=== PATIENT | female | born 1955 | race Caucasian/White ===

== ENCOUNTER → 2017-04-21 | Outpatient (CLI) | payer BC ==
--- NOTE | 2017-04-21 13:42 | MAMMOGRAPHY REPORT ---
BILATERAL DIGITAL SCREENING MAMMOGRAM TOMOSYNTHESIS WITH CAD: 04/21/2017 CLINICAL HISTORY: Routine screening. Patient has no complaints. TECHNIQUE: Breast tomosynthesis in addition to standard 2D mammography was performed. Current study was also evaluated with a Computer Aided Detection (CAD) system. COMPARISON: Comparison is made to exams dated: 03/29/2016 mammogram, 03/27/2015 mammogram, 04/04/2014 u ltrasound, 04/04/2014 mammogram, 03/26/2014 mammogram, and 03/19/2013 mammogram - [facility]. BREAST COMPOSITION: There are scattered areas of fibroglandular density in both breasts. FINDINGS: No suspicious masses, calcifications, or areas of architectural distortion are noted in ei ther breast. There has been no significant interval change compared to prior exams. IMPRESSION: ACR BI-RADS CATEGORY 1: NEGATIVE There is no mammographic evidence of malignancy. A 1 year screening mammogram is recommended. The pa tient will receive written notification of the results. Approximately 10% of breast cancers are not detected with mammography. A negative mammographic report should not delay biopsy if a clinically suggestive mass is present. Chari Crane M.D. /:04/21/2017 12:47:08 Chief Controller: Renee Holcomb [facility] letter sent: Normal 1/2 BI-RADS Code: ACR BI-RADS Category 1: Negative
== END | disposition home or self-care (01) ==
LOC: C.MAMM 10:41
PROVIDERS: ATTEND Obstetrics & Gynecology
DX: Z12.31 Encounter for screening mammogram for malignant neoplasm of breast (principal)

== ENCOUNTER → 2017-05-29 | Day surgery (SDC) | payer BC ==
[~2017-05-29] VITALS: Ht 162.6 cm; Wt 72.0 kg
[~2017-05-29] MED LIST: APIX1TAB3 PO; ATOR-24 PO; CALC500C70 PO; COEN1CAP28 PO; LIDOCAINE HCL 2% 2 ML VIAL (20MG/ML) ONE; METO50TA7 PO; PROPOFOL IV EMULSION 10 MG/ML 20 ML VIAL IV ONE; TMB100 PO
[2017-05-29 07:12] VITALS: BP 130/91; PULSE 93; TEMP 36.9; O2SAT 97; Ht 162.6 cm; Wt 72.0 kg
[2017-05-29 07:41] VITALS: BP 138/89; PULSE 100; O2SAT 100
--- NOTE | 2017-05-29 07:41 | History & Physical Bridge Note ---
H&P Re-Evaluation Bridge Note: I have examined the patient, reviewed the History & Physical and in the interval since the performance of the History & Physical I have noted the following changes of clinical significance: No changes noted. I reviewed the indications, procedure, risks and alternatives with patient and she understand and agrees to proceed. Consent obtained.
[2017-05-29 07:46] VITALS: BP 105/66; PULSE 100; O2SAT 100
--- NOTE | 2017-05-29 07:49 | [facility] Operative Report ---
Operative Report Operative Date May 29, 2017. Pre-Operative Diagnosis Atrial flutter Post-Operative Diagnosis same Procedure(s) Performed Electrical cardioversion Surgeon Dr. Bust[employer] Computer Consultant Surgeon(s) none Estimated Blood Loss none Findings Successful cardioversion with 50 J Specimens None Anesthesia via anesthesia department Complication(s) None Disposition [employer] recovering Description of Procedure The patient was brought to the laboratory being NPO after midnight and was identified in the laboratory, connected to the recording apparatus including electrocardiographic monitoring, noninvasive blood pressure monitoring and pulse oximetry. Anteroposterior patch electrodes were placed. The patient was anesthetized by the anesthesia department. Once adequate anesthesia was obtained a synchronized biphasic shock was delivered using 50 J with conversion to a sinus rhythm. The patient awoke from the anesthetic without sequela, will be observed briefly and then discharged. I attest to the content of the Intraoperative Record and any orders documented therein. Any exceptions are noted below.
[2017-05-29 07:51] VITALS: BP 105/66; PULSE 100; O2SAT 100
[2017-05-29 07:55] VITALS: BP 105/66; PULSE 100; O2SAT 98
--- NOTE | 2017-05-29 07:59 | Anesthesiology Progress Note ---
Anesthesia Post Op Note Date & Time May 29, 2017 at 07:59 Vital Signs Pain Intensity: 0 Vital Signs Past 12 Hours Date Time Temp Pulse Resp B/P (MAP) Pulse Ox O2 Delivery O2 Flow Rate FiO2 05/29/17 07:55 100 16 105/66 98 Room Air 05/29/17 07:51 100 16 105/66 100 Nasal Cannula 4 05/29/17 07:46 100 16 105/66 100 Nasal Cannula 4 05/29/17 07:41 100 16 138/89 100 Nasal Cannula 4 05/29/17 07:12 36.9 93 16 130/91 97 Room Air Notes Mental Status: alert / awake / arousable, participated in evaluation Pt Amnestic to Procedure: Yes Nausea / Vomiting: adequately controlled Pain: adequately controlled Airway Patency, RR, SpO2: stable & adequate BP & HR: stable & adequate Hydration State: stable & adequate Anesthetic Complications: no major complications apparent
--- NOTE | 2017-05-29 08:40 | Discharge Instructions ---
Discharge Instructions Date of Service May 29, 2017. Admission Reason for Admission: Atrial flutter Discharge Discharge Diagnosis / Problem: electrical cardioversion Discharge Goals Goal(s): Improve disease control Activity Recommendations Activity Limitations: resume your previous activity . Instructions / Follow-Up Instructions / Follow-Up ACTIVITY RECOMMENDATIONS: * May resume driving tomorrow. SPECIAL CARE: * May apply burn ointment for skin irritation. * Please contact physician for any lightheadedness, dizziness or palpitations. Current Hospital Diet Patient's current hospital diet: AHA Diet (Heart Healthy) Discharge Diet Recommended Diet: AHA Diet (Heart Healthy) Procedures Procedures Performed: Electrical cardioversion Pending Studies Studies pending at discharge: no Medical Emergencies . Who to Call and When: Medical Emergencies: If at any time you feel your situation is an emergency, please call 911 immediately. . Non-Emergent Contact Non-Emergency issues call your: Primary Care Provider . . "Provider Documentation" section prepared by Joaquin Bustamante. . VTE Core Measure Inpt VTE Proph given/why not?: Other Anticoagulation
[2017-05-29 09:00] VITALS: BP 105/64; PULSE 59; O2SAT 96
== END | disposition home or self-care (01) ==
LOC: C.CATH 06:31
PROVIDERS: ATTEND Internal Medicine Cardiovascular Disease
DX: I48.0 Paroxysmal atrial fibrillation (principal); I48.92 Unspecified atrial flutter; E78.5 Hyperlipidemia, unspecified; Z79.01 Long term (current) use of anticoagulants; Z85.828 Personal history of other malignant neoplasm of skin; Z90.710 Acquired absence of both cervix and uterus; Z90.722 Acquired absence of ovaries, bilateral; Z82.49 Family history of ischemic heart disease and other diseases of the circulatory system

== ENCOUNTER → 2018-03-13 | Outpatient (CLI) | payer BC ==
[~2018-03-13] MED LIST changes: -LIDOCAINE HCL 2% 2 ML VIAL (20MG/ML) ONE; -METO50TA7 PO; +METO50TA8 PO; -PROPOFOL IV EMULSION 10 MG/ML 20 ML VIAL IV ONE
--- NOTE | 2018-04-05 12:34 | CODING QUERY NO DIAGNOSIS ---
TREATMENT RENDERED WITHOUT A DIAGNOSIS : 53 To promote full compliance with coding requirements relating to patient care, physician participation is requested in all cases of desk editor uncertainty. Please assist us with providing a diagnosis/symptom for the test(s) below: A diagnosis/symptom was not documented on your Order. A valid diagnosis/symptom is required to bill all insurances. Please remember that we are unable to code a diagnosis of rule out, probable, possible, questionable, or suspected. Tests that require a diagnosis: DOS: 03/13/18 * ALT/SGPT DIAGNOSIS: * AMYLASE DIAGNOSIS: * AST/SGOT DIAGNOSIS: * BILIRUBIN DIAGNOSIS: Provider Signature: Date: Thank you Shanon Brady Health Information Management Once completed, please kindly fax back to [phone] For questions please call [phone]
== END | disposition home or self-care (01) ==
LOC: C.LAB 12:00
PROVIDERS: ATTEND Family Medicine
DX: Z01.89 Encounter for other specified special examinations (principal)

== ENCOUNTER 2023-12-12 09:30 | Observation (INO) ==
--- NOTE | 2023-11-09 10:49 | PAT Medication Instructions ---
Medication Instructions Date of Service November 09, 2023 Home Medications Medication Instructions Recorded atorvastatin 40 mg tablet 40 mg PO HS #90 tabs 12/22/22 apixaban 5 mg tablet (Eliquis) 5 mg PO BID #180 tabs 07/06/23 peg 3350-sod sulf,[id number] See Rx Instructions PO .COMPLEX #2 11/08/23 178.7-7.3-0.5-1.12-0.9 gram oral mL soln (Suflave) coenzyme Q10 100 mg capsule 100 mg PO QAM calcium carbonate 600 mg-vitamin D3 5 mcg (200 unit) capsule (Calcium 600 + D(3)) 1 cap PO QAM omega-3 650 mg-dha 400 mg-epa 200 mg-fish oil-vit D3 300 unit capsule 1 cap PO DAILY atorvastatin 40 mg tablet 40 mg PO HS apixaban 5 mg tablet (Eliquis) 5 mg PO BID peg 3350-sod sulf,[id number] 178.7-7.3-0.5-1.12-0.9 gram oral soln (Suflave) See Rx Instructions Continue as directed peg 3350-sod sulf,[id number] 178.7-7.3-0.5-1.12-0.9 gram oral soln (Suflave) See Rx Instructions ASK your prescriber and surgeon apixaban 5 mg tablet (Eliquis) 5 mg PO BID (in order to get spinal anesthesia- will need to hold Eliquis/apixaban at least 72 hours prior to surgery) STOP taking 2 weeks before surgery coenzyme Q10 100 mg capsule 100 mg PO QAM omega-3 650 mg-dha 400 mg-epa 200 mg-fish oil-vit D3 300 unit capsule 1 cap PO DAILY DO NOT take the morning of surgery calcium carbonate 600 mg-vitamin D3 5 mcg (200 unit) capsule (Calcium 600 + D(3)) 1 cap PO QAM Take evening before surgery atorvastatin 40 mg tablet 40 mg PO HS OTHERWISE NOTHING TO EAT OR DRINK AFTER MIDNIGHT Other Notes If you have any questions please call us at [phone] or [phone] or [phone] or [phone]
--- NOTE | 2023-11-14 09:56 | Anesthesiology Consultation ---
Date of Service November 14, 2023 Assessment & Plan (1) Encounter for pre-operative examination: - Infectious disease screening: Per assessment on 11/14/23: No known infectious disease contacts or current infectious disease symptoms. No noted recent Covid positive test result. - Outpatient joint assessment: Pt currently scheduled for inpatient pathway. If surgeon requests review for outpatient joint pathway, patient is not recommended candidate for outpatient joint program from anesthesia standpoint based upon available information. - EP/Cardiology visit (04/13/23): "She has felt very well since that second ablation. She has had no known recurrence or recurrent atrial fibrillation or fluter. She remains active but.. limited by her knee and is looking forward to some knee surgery.. Plan today is to stop the Multaq.. I recommend that she continue taking blood thinner for stroke risk reduction" - Borderline hyperkalemia: Potassium 5.2 on preop labs 11/14/23. Will recheck potassium level DOS. Chart Review Chart Review: Acceptable Risk for Surgery and Patient seen in Pre Admission Testing Teaching & Discussion Pre-Anesthesia Teaching/Discussion Notes: Instructed NPO after midnight before surgery,except medications with 15 cc of water. Medication instructions provided according to the PAT guidelines. History Surgery Operation Date: 12/12/23 07:00 Proposed Procedures p Left Total Knee Arthroplasty - Edison Aguilar MD Height/Weight Height: 5 ft 4 in Weight: 69.4 kg Allergies Allergy/AdvReac Type Severity Reaction Status Date / Time prednisone AdvReac Severe Psychosis Verified 11/10/23 12:55 Medications Home Medications Medication Instructions Recorded Confirmed Last Taken coenzyme Q10 100 mg capsule 100 mg PO QAM 07/09/19 11/06/23 1 Day Ago ~12/09/22 calcium carbonate 600 mg-vitamin 1 cap PO QAM 08/22/19 11/06/23 1 Day Ago D3 5 mcg (200 unit) capsule ~12/09/22 (Calcium 600 + D(3)) omega-3 650 mg-dha 400 mg-epa 200 1 cap PO DAILY 03/31/22 11/06/23 1 Day Ago mg-fish oil-vit D3 300 unit capsule ~12/09/22 atorvastatin 40 mg tablet 40 mg PO HS #90 tabs 12/22/22 11/06/23 Unknown apixaban 5 mg tablet (Eliquis) 5 mg PO BID #180 tabs 07/06/23 11/06/23 Unknown peg 3350-sod sulf,[id number] See Rx Instructions PO .COMPLEX #2 11/08/23 Unknown 178.7-7.3-0.5-1.12-0.9 gram oral mL soln (Suflave) Past Medical History Medical History Bipolar disorder History of basal cell carcinoma History of colon polyps History of COVID-19 09/2022- resolved History of dysplastic nevus History of squamous cell carcinoma Hyperlipidemia Paroxysmal atrial fibrillation Taking Eliquis Follows with Dr Do/[facility] Exercise / Class Metabolic Activity II 4-5 Yardwork/Stairs/Walk up hill (one FS: No CP, no SOB) Past Family History Family History Mother Atrial fibrillation Melanoma of forearm Colonic polyp Father Atrial fibrillation Melanoma of eye Colonic polyp Other No family history of adverse response to anesthesia Denies family history of Ovarian cancer Prostate cancer Myocardial infarction Breast cancer Lung cancer Colorectal cancer Stroke Past Surgical History Surgical History H/O hysterectomy with oophorectomy History of colonoscopy with polypectomy [place] cardiac [place]ia [place] [place] of tonsillectomy and adenoidectomy History of wisdom tooth extraction Hx of local excision of skin lesion Hx of transesophageal echocardiography [place]ENDA) for [place] [place] Nausea and vomiting after administration of anesthetic agent S/P tubal ligation Past Anesthesia History No Hx of Anesthesia Complications and No Family Hx of Anesthesia Complications History of PONV No Hx of Motion Sickness and History of PONV (Remote hx) Social History Smoking Status: Never smoker Do You Dip or Chew Tobacco: No Hx Alcohol Use: Yes Alcohol type: beer, wine and hard liquor alcohol intake frequency: a few times a week Hx Substance Use: No substance use type: does not use Review of Systems Patient denies chest pain, shortness of breath, dyspnea on exertion, fever, chills, cough, wheezing, palpitations. Physical Exam Vital Signs BP 131/86 P 82 TEMP 98.4 SP02 99%RA RESP 16 Physical Full cervical extension range of motion. Full TMJ range of motion. TMD 3 finger breaths Mallampati Score 2 Dentition: intact, + several implants, + several crowns (including right upper incisor) Lungs: clear throughout to auscultation Cardiac: regular rate and rhythm, no murmurs noted Spine: normal Carotid arteries: negative bruit Extremities: no LE edema Lab Results Anesthesia Preop Results Results Anesthesia Widget: WBC 5.03 K/ul (4.8-10.8) 11/14/23 Hgb 13.4 g/dl (12.0-16.0) 11/14/23 Hct 39.5 % (37.0-47.0) 11/14/23 Plt 221 K/uL (130-400) 11/14/23 Na 140 mmol/L (136-145) 11/14/23 K 5.2 mmol/L (3.5-5.1) H 11/14/23 Cl 106 mmol/L (98-107) 11/14/23 CO2 28 mmol/L (21-32) 11/14/23 BUN 21 mg/dl (6-23) 11/14/23 Creat 0.84 mg/dl (0.6-1.2) 11/14/23 Glucose Level 99 mg/dl (70-99(Fasting)) 11/14/23 PT 11.1 Seconds (9.0-12.0) 11/14/23 PTT 27 Seconds (21-31) 11/14/23 INR 1.0 (0.9-1.1) 11/14/23 Blood Type A Negative 11/14/23 Antibody Screen NEGATIVE 11/14/23 Testing Electrocardiogram Date: 01/05/23 NSR at 85bpm. "Normal ECG" Chest X-Ray Date: 11/14/23 FINDINGS: No lines and tubes are seen. Calcified aortic knob is seen. The lungs are clear. No evidence of pleural effusion or pneumothorax. IMPRESSION: No acute chest disease. Echocardiogram BRENDA (during ablation) Date: 01/05/23 EF 55%. DOE free of thrombus formation. No significant valvular disease. No RWMA.
--- NOTE | 2023-12-07 08:17 | History & Physical Report ---
Date of Service December 07, 2023 Assessment & Plan (1) Arthritis of knee, left: 68-year-old female with a history of underlying paroxysmal atrial fibrillation status post ablation with advanced left knee arthritis. She is failed conservative measures. She like to have her knee replaced. Plan: Plan taken to the operating do a left total knee replacement for the risks Mente this procedure planed the patient include but not limited to DVT PE infection neurological and vascular bleeding palm pain limb range of motion sepsis fairly with symptoms incomplete relief of symptoms persistent pain etc. Patient understands and desires to proceed. Informed consent was obtained. She will need to hold her Eliquis 3 days preop. Will start her on a postoperative prophylactic dose 24 hours postop. Plan to be discharged home using [facility] home [facility]. Her potassium slightly elevated on her preop labs and will Trevena checked at the morning of surgery. (2) Paroxysmal atrial fibrillation: (3) Hyperlipidemia: (4) Chronic anticoagulation: (5) Bipolar disorder: History of Present Illness Chief Complaint: . Persistent and progressive left knee pain and discomfort. Primary Care Provider: Mathew Santos MD . Patient is a 68-year-old female who presents for surgical treatment of her left knee. She got a long history of gradually increasing left knee pain discomfort is gradually gotten worse over time. She been through extensive conservative treatment including injections which have become less successful over time. Describes global pain. The more she is up and on it the more it hurts. She is having difficulty maintaining an active lifestyle due to the pain. Is global pain. She limps more as the day goes on patient is ready to have her knee fixed. Patient does have history of paroxysmal atrial fibrillation. She has had ablation x 2 without signs of recurrence but still on Eliquis. Allergies Allergy/AdvReac Type Severity Reaction Status Date / Time prednisone AdvReac Severe Psychosis Verified 11/20/23 09:30 Home Medications Medication Instructions Recorded Confirmed Type coenzyme Q10 100 mg capsule 100 mg PO QAM 07/09/19 11/20/23 History calcium carbonate 600 mg-vitamin 1 cap PO QAM 08/22/19 11/20/23 History D3 5 mcg (200 unit) capsule (Calcium 600 + D(3)) omega-3 650 mg-dha 400 mg-epa 200 1 cap PO DAILY 03/31/22 11/20/23 History mg-fish oil-vit D3 300 unit capsule atorvastatin 40 mg tablet 40 mg PO HS #90 tabs 12/22/22 11/20/23 Rx apixaban 5 mg tablet (Eliquis) 5 mg PO BID #180 tabs 07/06/23 11/20/23 Rx Wheeled Walker #1 ea 12/04/23 Rx Past Med/Surg History Medical History History of colon polyps Bipolar disorder History of COVID-19 09/2022- resolved History of dysplastic nevus History of squamous cell carcinoma History of basal cell carcinoma Hyperlipidemia Paroxysmal atrial fibrillation Taking Eliquis Follows with Dr Do/[facility] Surgical History Hx of transesophageal echocardiography (BRENDA) for monitoring 01/2023 ([facility] [place] Nausea and vomiting after administration of anesthetic agent Hx of local excision of skin lesion History of radiofrequency ablation procedure for cardiac arrhythmia x2, most recent 01/2023 ([facility] [place] History of colonoscopy with polypectomy History of wisdom tooth extraction History of tonsillectomy and adenoidectomy H/O hysterectomy with oophorectomy S/P tubal ligation Family History Mother Atrial fibrillation Melanoma of forearm Colonic polyp Father Atrial fibrillation Melanoma of eye Colonic polyp Other No family history of adverse response to anesthesia Denies family history of Ovarian cancer Prostate cancer Myocardial infarction Breast cancer Lung cancer Colorectal cancer Stroke Social History Smoking Status: Never smoker Second Hand Exposure: No; Do You Dip or Chew Tobacco: No; Hx Alcohol Use: Yes Alcohol type: beer, wine and hard liquor Alcohol Intake Frequency Comment: rarely Hx Substance Use: No Preferred Language: Angolan Communication Ability: Effective Visual Impairment: Limited Hearing Ability: Normal Filter Washer And Presser Required: No Beliefs That Will Affect Care: None marital status: Current Living Situation: Spouse current occupational status: retired How many Children do You have: 2 Feels Safe at Home: Yes Childhood Exposure to Second-Hand Smoke: Yes Diet: regular caffeine: Yes during the past year weight has: remained stable Dental Care, Regularly: Yes Physical Activity Frequency: 3-4 Times per Week Seatbelt Use: always Sunscreen Use: Yes Gender Identity: Female Assistive Devices: Glasses Review of Systems All systems reviewed & are unremarkable except as noted in HPI & below. Physical Exam . Physical examination was a pleasant 68-year-old female. Looks younger than her stated age. Examination of the left knee reveal patient ambulates independently. She got slight varus alignment to her knee. Tender over the medial joint line. Does have a little bit of a varus thrust with weightbearing. Small knee effusion. Range of motion 5-1 20. No instability. No pain with hip motion. Constitutional WD/WN, vitals as above Neck trachea midline, no thyromegaly Respiratory normal respiratory effort, lungs clear to auscultation Cardiovascular RRR, no murmur, no edema Gastrointestinal (Abdomen) normal bowel sounds, soft, nontender, no hepatosplenomegaly Results & Data Results & Data Laboratory Results . Diagnostic Findings . X-rays left knee reviewed. She has advanced left knee DJD. She got complete loss of medial joint space. She has osteophytes in all 3 compartments. Pretty significant posterior osteophytes. Some small loose bodies. PG Care Time/CCT Total # of Minutes Spent Total Time Spent with Patient: Total time spent is greater than 50% in coordination of care (as documented) at patient's floor/unit and/or counseling patient: Coding Level of Care Code None Diagnoses Arthritis of knee, left M17.12 Paroxysmal atrial fibrillation I48.0 Pure hypercholesterolemia E78.00 Hyperlipidemia type: pure hypercholesterolemia Chronic anticoagulation Z79.01 Bipolar disorder, in full remission, most recent episode manic F31.74 Active/Remission status: in full remission Most recent bipolar episode type: manic (3) Hyperlipidemia Hyperlipidemia type: pure hypercholesterolemia Qualified Code(s): E78.00 - Pure hypercholesterolemia, unspecified (5) Bipolar disorder Active/Remission status: in full remission Most recent bipolar episode type: manic Qualified Code(s): F31.74 - Bipolar disorder, in full remission, most recent episode manic
--- NOTE | 2023-12-08 08:15 | Anesthesiology Consultation ---
Date of Service December 08, 2023 Assessment & Plan (1) Encounter for pre-operative examination: - Infectious disease screening: Per assessment on 11/14/23: No known infectious disease contacts or current infectious disease symptoms. No noted recent Covid positive test result. - Outpatient joint assessment: Pt currently scheduled for inpatient pathway. If surgeon requests review for outpatient joint pathway, patient is not recommended candidate for outpatient joint program from anesthesia standpoint based upon available information. - EP/Cardiology visit (04/13/23): "She has felt very well since that second ablation. She has had no known recurrence or recurrent atrial fibrillation or fluter. She remains active but.. limited by her knee and is looking forward to some knee surgery.. Plan today is to stop the Multaq.. I recommend that she continue taking blood thinner for stroke risk reduction" - Borderline hyperkalemia: Potassium 5.2 on preop labs 11/14/23. Will recheck potassium level DOS. Chart Review Chart Review: Acceptable Risk for Surgery and Patient seen in Pre Admission Testing (11/14/23) Teaching & Discussion Pre-Anesthesia Teaching/Discussion Notes: Instructed NPO after midnight before surgery,except medications with 15 cc of water. Medication instructions provided according to the PAT guidelines. History Surgery Operation Date: 12/12/23 11:00 Proposed Procedures p Left Total Knee Arthroplasty - Edison Aguilar MD Height/Weight Height: 5 ft 4 in Weight: 69.4 kg Allergies Allergy/AdvReac Type Severity Reaction Status Date / Time prednisone AdvReac Severe Psychosis Verified 12/12/23 09:54 Medications Home Medications Medication Instructions Recorded Confirmed Last Taken coenzyme Q10 100 mg capsule 100 mg PO QAM 07/09/19 12/12/23 11/28/23 calcium carbonate 600 mg-vitamin 1 cap PO QAM 08/22/19 12/12/23 11/28/23 D3 5 mcg (200 unit) capsule (Calcium 600 + D(3)) omega-3 650 mg-dha 400 mg-epa 200 1 cap PO DAILY 03/31/22 12/12/23 11/28/23 mg-fish oil-vit D3 300 unit capsule atorvastatin 40 mg tablet 40 mg PO HS #90 tabs 12/22/22 12/12/23 12/11/23 09:30 apixaban 5 mg tablet (Eliquis) 5 mg PO BID #180 tabs 07/06/23 12/12/23 12/08/23 22:00 Wheeled Walker #1 ea 12/04/23 Unknown acetaminophen 500 mg tablet 1,000 mg (2 x 500 mg) PO TID pain 12/09/23 12/12/23 Unknown (Tylenol Extra Strength) 30 days #180 tabs cefadroxil 500 mg capsule 500 mg PO BID 7 days #14 caps 12/09/23 12/12/23 Unknown ondansetron 4 mg disintegrating 4 mg PO Q8 PRN nausea #20 tabs 12/09/23 12/12/23 Unknown tablet oxycodone 5 mg tablet 5 - 10 mg (1 - 2 x 5 mg) PO Q6 PRN 12/09/23 12/12/23 Unknown pain #40 tabs sennosides 8.6 mg tablet (Senokot) 8.6 mg PO BID prevent constipation 12/09/23 12/12/23 Unknown 14 days #28 tabs Active Medications Generic Name Dose Route Start Last Admin Trade Name Freq PRN Reason Stop Dose Admin Acetaminophen 1,000 mg 12/12/23 06:00 12/12/23 10:10 Acetaminophen 500 Mg Tab PO 12/12/23 18:00 1,000 mg PREOP JOSUÉ Administration Celecoxib 200 mg 12/12/23 06:00 12/12/23 10:11 Celebrex 200 Mg Cap PO 12/12/23 18:00 200 mg PREOP JOSUÉ Administration Dexamethasone Sodium Phosphate 10 mg 12/12/23 06:00 12/12/23 10:11 DexamethasonePf 10 Mg/Ml Vial IV 12/12/23 18:00 10 mg PREOP JOSUÉ Administration Famotidine 20 mg 12/12/23 06:00 12/12/23 10:11 Famotidine 20 Mg Tab PO 12/12/23 18:00 20 mg PREOP JOSUÉ Administration Lactated Ringer's 1,000 mls @ 15 mls/hr 12/12/23 06:00 12/12/23 10:12 Lr IV 12/12/23 18:00 15 mls/hr .Q24H JOSUÉ Administration Lactated Ringer's 1,000 mls @ 60 mls/hr 12/12/23 06:00 12/12/23 10:12 Lr IV 12/12/23 22:39 Not Given .[id number] JOSUÉ Metoclopramide HCl 10 mg 12/12/23 06:00 12/12/23 10:12 Metoclopramide Hcl 10 Mg Tablet PO 12/12/23 18:00 10 mg PREOP JOSUÉ Administration Past Medical History Medical History Bipolar disorder History of basal cell carcinoma History of colon polyps History of COVID-19 09/2022- resolved History of dysplastic nevus History of squamous cell carcinoma Hyperlipidemia Paroxysmal atrial fibrillation Taking Eliquis Follows with Dr Do/[facility] Exercise / Class Metabolic Activity II 4-5 Yardwork/Stairs/Walk up hill (one FS: No CP, no SOB) Past Family History Family History Mother Atrial fibrillation Melanoma of forearm Colonic polyp Father Atrial fibrillation Melanoma of eye Colonic polyp Other No family history of adverse response to anesthesia Denies family history of Ovarian cancer Prostate cancer Myocardial infarction Breast cancer Lung cancer Colorectal cancer Stroke Past Surgical History Surgical History H/O hysterectomy with oophorectomy History of colonoscopy with polypectomy History of radiofrequency ablation procedure for cardiac arrhythmia x2, most recent 01/2023 ([facility] [place]) History of tonsillectomy and adenoidectomy History of wisdom tooth extraction Hx of local excision of skin lesion Hx of transesophageal echocardiography (BRENDA) for monitoring 01/2023 ([facility] [place]) Nausea and vomiting after administration of anesthetic agent S/P tubal ligation Past Anesthesia History No Hx of Anesthesia Complications and No Family Hx of Anesthesia Complications History of PONV No Hx of PONV and No Hx of Motion Sickness Social History Smoking Status: Never smoker Do You Dip or Chew Tobacco: No Hx Alcohol Use: Yes Alcohol type: beer, wine and hard liquor alcohol intake frequency: a few times a week Hx Substance Use: No substance use type: does not use Review of Systems Patient denies chest pain, shortness of breath, dyspnea on exertion, fever, chills, cough, wheezing, palpitations. Physical Exam Vital Signs Last Vital Signs Temp 36.8 C 12/12/23 09:58 Pulse 89 12/12/23 09:58 Resp 20 12/12/23 09:58 BP 139/85 12/12/23 09:58 Pulse Ox 99 12/12/23 09:58 O2 Del Method Room Air 12/12/23 09:58 BP 131/86 P 82 TEMP 98.4 SP02 99%RA RESP 16 Physical Full cervical extension range of motion. Full TMJ range of motion. TMD 3 finger breaths Mallampati Score 2 Dentition: intact, + several implants, + several crowns (including right upper incisor) Lungs: clear throughout to auscultation Cardiac: regular rate and rhythm, no murmurs noted Spine: normal Carotid arteries: negative bruit Extremities: no LE edema Lab Results Anesthesia Preop Results Results Anesthesia Widget: 2 WBC 5.03 K/ul (4.8-10.8) 11/14/23 Hgb 13.4 g/dl (12.0-16.0) 11/14/23 Hct 39.5 % (37.0-47.0) 11/14/23 Plt 221 K/uL (130-400) 11/14/23 Na 140 mmol/L (136-145) 11/14/23 K 4.2 mmol/L (3.5-5.1) 12/12/23 Cl 106 mmol/L (98-107) 11/14/23 CO2 28 mmol/L (21-32) 11/14/23 BUN 21 mg/dl (6-23) 11/14/23 Creat 0.84 mg/dl (0.6-1.2) 11/14/23 Glucose Level 99 mg/dl (70-99(Fasting)) 11/14/23 PT 11.1 Seconds (9.0-12.0) 11/14/23 PTT 27 Seconds (21-31) 11/14/23 INR 1.0 (0.9-1.1) 11/14/23 Blood Type A Negative 11/14/23 Antibody Screen NEGATIVE 11/14/23 Testing Laboratory Results 12/12/23 09:40 Electrocardiogram Date: 01/05/23 NSR at 85bpm. "Normal ECG" Chest X-Ray Date: 11/14/23 FINDINGS: No lines and tubes are seen. Calcified aortic knob is seen. The lungs are clear. No evidence of pleural effusion or pneumothorax. IMPRESSION: No acute chest disease. Echocardiogram Date: 01/05/23 EF: 55% Valvular Disease: + no significant valvular disease BRENDA (during ablation) Date: 01/05/23 EF 55%. DOE free of thrombus formation. No significant valvular disease. No RWMA.
[~2023-12-12 09:30] MED LIST changes: -APIX1TAB3 PO; -ATOR-24 PO; +BUPIVACAINE 0.5 % 5 MG/1 ML PF 10ML VIAL ONE; -CALC500C70 PO; -COEN1CAP28 PO; +General Order Problem(s) SCH; -METO50TA8 PO; +Nursing to Pharmacy Communication SCH; +ROPIVACAINE 0.5% 5 MG/ML 30 ML VIAL ONE; -TMB100 PO
[2023-12-12] MEDS: ACETAMINOPHEN 500 MG TAB PO SCH ×2 (10:10→16:33)
[2023-12-12] MEDS: FAMOTIDINE 20 MG TAB PO SCH (10:11)
[2023-12-12] MEDS: CeleBREX 200 MG CAP PO SCH (10:11)
[2023-12-12] MEDS: dexAMETHasone**PF** 10 MG/ML VIAL IV SCH (10:11)
[2023-12-12] MEDS ORDERED: MIDAZOLAM HCL 1 MG/ML 2ML VIAL ONE (10:12)
[2023-12-12] MEDS ORDERED: PROPOFOL IV EMULSION 10 MG/ML 20 ML VIAL IV ONE (10:12)
[2023-12-12] MEDS ORDERED: LIDOCAINE 2% 2 ML VIAL/AMP(20MG/ML) INFIL ONE (10:12)
[2023-12-12] MEDS: LR 60ML/HR IV SCH (10:12)
[2023-12-12] MEDS: METOCLOPRAMIDE HCL 10 MG TABLET PO SCH (10:12)
[2023-12-12] MEDS: LR 500ML BOLUS, THEN 15ML/HR IV SCH (10:12)
[2023-12-12] MEDS ORDERED: fentaNYL citrate PF 100 MCG/2 ML VIAL IV PRN (10:31)
[2023-12-12] MEDS ORDERED: DROPERIDOL 5 MG/2 ML VIAL IV PRN (10:31)
[2023-12-12] MEDS ORDERED: ATROPINE SULFATE 0.1 MG/ML 10ML SYR IV PRN (10:31)
[2023-12-12] MEDS ORDERED: ePHEDrine sulfate 50 MG/ML AMP IV PRN (10:31)
--- NOTE | 2023-12-12 11:18 | History & Physical Bridge Note ---
Date of Service December 12, 2023 History & Physical Bridge Note I have examined the patient, reviewed the History & Physical and in the interval since the performance of the History & Physical I have noted the following changes of clinical significance: no changes noted
[2023-12-12] MEDS: ceFAZolin 2000MG 2,000 MG/15 ML SYR IV SCH (11:39)
[2023-12-12] MEDS: ROPIV 0.5% 246mg, Ketorolac 30mg, EPINEPHrine 0.5mg in NSS INFIL SCH (12:19)
[2023-12-12] MEDS: ORTHO JOINT ANESTHETIC ONE (12:20)
[2023-12-12] MEDS: TRANEXAMIC ACID 1,000 MG **IV Intra-op IV SCH (12:35)
--- NOTE | 2023-12-12 13:30 | Operative Report ---
PG Post Operative Report Pre & Post Diagnosis Operation Date: 12/12/23 11:00 Pre-Op Diagnosis: Left Knee degenerative joint disease Post-Op Diagnosis: Left Knee degenerative joint disease I identified the patient and participated in the time-out.: Yes Procedure Operation Date: 12/12/23 11:00 Actual Procedures p Left Total Knee Arthroplasty(Left) - Edison Aguilar MD Surgeon Edison Aguilar MD Digital Marketer Nain Younger PA-C Estimated Blood Loss 50 Findings Consistent with Post-Op Diagnosis Operative findings reveal advanced left knee DJD. She had extensive grade 4 [id number] disease with significant eburnation of the medial compartment. She had less severe but spotty grade 4 changes laterally yet. Fixed varus deformity to her knee with a flexion contracture of 15 to 20 degrees. Osteophytes in all 3 compartments. Specimens Left knee sent for pathology. Anesthesia Type Spinal MAC Complications none Disposition Accompanied Patient To Recovery: No Indications Patient is a 68-year-old fairly active female is had a long history of bilateral knee pain discomfort left side a bit worse than the right. She been through extensive conservative treatment over the years which would become less success ful. X-rays show advanced left knee DJD. She has a significant stiff knee as well. She was indicated for surgical treatment/knee replacement. Description of Procedure Operative implants consist of: 1 Biomet Vanguard size 67.5 left posterior stabilized femoral component. 2. Biomet size 71 tibial tray. 3. 10 mm posterior stabilized polyethylene insert. 4. 31 x 8 all poly patella. The patient was taken the operating, identified, placed on the operating table in the supine position. All contact areas were appropriately padded. IV antibiotics tried by anesthesia team. Spinal anesthetic and adductor canal block had been applied in the holding area. Contreras catheter was placed in sterile fashion for the left thigh turn was then placed in the left lower extremities then prepped and draped in usual sterile fashion. The left leg was elevated and exsanguinated with use of an Esmarch and the tourniquet was placed at 300 mmHg. An anterior approach left knee was then performed to longitudinal incision centered over the patella. Sharp dissection was carried through subcutaneous tissue down the extensor mechanism. A medial parapatellar arthrotomy incision was made. Some subperiosteal dissection was carried out medially. The fat pad was resected from Neath patella tendon. Lateral patellofemoral ligament was released. Patella subluxated laterally knee was flexed. The osteophyte taken off the distal femur. The ACL and PCL were then released from the distal femur and the tibia subluxated anteriorly. The external tibial alignment jig was then placed in the interface the tibia and adjusted 14 mm medially. Proximal tibial cut was made essentially flush with the most deficient aspect of the medial tibial plateau. Some osteophytes taken off medially. Tibia sized to a size 71. Attention drawn the femur. The distal femur was entered with a sharp drill. Intramedullary canal was suction. A left 5 degree valgus cutting guide was placed. Distal femoral cutting block was pinned in place. Distal femoral cut was made take an additional 3 mm of bone off distal femur. The femur was then sized to a size 67.5. The AP cutting block was pinned parallel to the epicondylar axis which was 5 degrees of external rotation. The anterior cut, anterior chamfer, posterior cut, posterior chamfer cuts were made. The box cutting guide was placed in just slight lateral and the box cut was made. The knee was flexed. The remnants of the medial and lateral menisci were excised. The osteophytes taken off the posterior aspect the femur. A trial femoral component was placed. The tibial tray was pinned Gill external rotation. The drill and stem punch were used to create defect in proximal tibia for the tibial tray. The knee was then trialed and the 10 mm insert fit most appropriately. Attention drawn the patella. The patella was cleaned of all soft tissues. Patella thickness measured 4.23 mm and cut down to 13. Was sized to a size 31 patella. The lug holes were drilled for 31 patella. The lateral osteophyte was removed. Patella button was placed. Knee was taken through range of motion and the patella tracked nicely with no thumbs test. Attention drawn to Torp placed in the permanent components. Nupathe all trial components were removed. Bone plug was placed into this femur limit blood loss. Double batch Palacos G cement was mixed. A Biomet Vanguard size 67.5 left Po stabilized femoral component, a size 71 tibial tray, a 10 mm post stabilized polyethylene insert, and a 31 x 8 all poly patella then cemented in place. The knee was brought out into full extension till cement hardened. Final cement check was then performed. The pericapsular tissues were injected with total of 100 cc of orthopedic joint mix. The patient did receive 1 g of tranexamic acid. The tourniquet was then let down for final tourniquet time 56 minutes. Hemostasis assured use electrocautery. Extensor Meclomen closed with combination 1 PDS suture and #1 Vicryl suture in a [id number] fashion. The extensor mechanism was then checked and found to be intact through the subcutaneous tissues then closed with 2-0 Dexon suture in a buried interrupted fashion skin was closed skin emilee. Leg was then cleaned and dried and sterile dressing with Xeroform, 4 fours, sterile cast padding, Jorge bandage were applied. Patient then transferred to the recovery room in stable condition. The patient tolerated the procedure well and there were no complications. Nain Younger, my physician assistant controller, was present for the entire procedure. His assistance was essential and required for appropriate patient positioning, prepping and draping, surgical exposure, performing the technical details of the operation, placement the implants, closure of the wound, and placement of the sterile bandage. I attest to the content of the Intraoperative Record and any orders documented therein. Any exceptions are noted below.
--- NOTE | 2023-12-12 13:50 | XRay Report ---
LEFT KNEE 2 VIEWS History: Left total knee arthroplasty. Degenerative arthritis. Postop. FINDINGS: The patient is status post a left total knee arthroplasty. The hardware is intact. No fract ure or dislocation. Skin emilee drains are in place. IMPRESSION: Left total knee arthroplasty. No evidence for hardware complication. ACT 112: Negative or not required by law. Electronically signed by: Adrien Apple M.D. 12/12/2023 1:48 PM
--- NOTE | 2023-12-12 14:05 | Anesthesiology Progress Note ---
Date of Service December 12, 2023 Anesthesia Post Procedure Vital Signs Vital Signs: Temp Pulse Resp BP Pulse Ox O2 Del Method 12/12/23 13:50 90 13 125/63 96 Room Air 12/12/23 13:40 89 21 117/65 97 Room Air 12/12/23 13:30 104 H 16 111/59 L 97 Room Air 12/12/23 13:23 97.9 F 96 H 16 115/64 97 Room Air 12/12/23 09:58 98.2 F 89 20 139/85 99 Room Air Transfer of Care Handoff Completed per policy Notes Mental Status: alert / awake / arousable and participated in evaluation Patient Amnestic to Procedure: Yes Nausea / Vomiting: adequately controlled Pain: adequately controlled Airway Patency, RR, SpO2: stable & adequate BP & HR: stable & adequate Hydration State: stable & adequate Neuraxial Anesthesia: was administered and sensory block is resolving Anesthetic Complications: no major complications apparent and Pt Satisfied with anesthetic care
[2023-12-12] MEDS ORDERED: MAGNESIUM HYDROXIDE SUSP 30 ML UDC PO PRN (14:34)
[2023-12-12] MEDS ORDERED: HYDROmorphone INJ 0.5 MG/0.5 ML SYR IV PRN (14:34)
[2023-12-12] MEDS ORDERED: ONDANSETRON INJ 2 MG/ML 2 ML VIAL IV PRN (14:34)
[2023-12-12] MEDS ORDERED: NALOXONE HCL 0.4 MG/1 ML VIAL/CARP IV PRN (14:34)
[2023-12-12] MEDS ORDERED: bisacodyL 10 MG SUPP PR PRN (14:34)
[2023-12-12] MEDS ORDERED: METOCLOPRAMIDE HCL INJ 5 MG/ML 2 ML VIAL IV PRN (14:34)
[2023-12-12] MEDS: SODIUM CHLORIDE 0.9% 1,000 ML IV SCH (16:20)
[2023-12-12] MEDS: KETOROLAC TROMETHAMINE 15 MG/ML VIAL IV SCH (16:33)
[2023-12-12] MEDS: ASCORBIC ACID 500 MG TAB PO SCH (16:33)
[2023-12-12] MEDS: oxyCODONE HCL IR 5 MG TAB (IMMEDIATE RELEASE) PO PRN (18:09)
[2023-12-12] MEDS: TRANEXAMIC ACID / 0.7% NACL 1,000 MG/100 ML BAG IV SCH (20:15)
[2023-12-12] MEDS: SENNA 8.6 MG TAB PO SCH (20:15)
[2023-12-12] MEDS: DOCUSATE SODIUM 100 MG CAP PO SCH (20:15)
[2023-12-12] MEDS: ATORVASTATIN 40 MG TAB PO SCH (20:15)
[2023-12-12] MEDS ORDERED: SENNA 8.6 MG TAB PO SCH (21:00)
[2023-12-13 07:35] LABS: Hematocrit (blood only) 28.3 % (37.0-47.0); Hemoglobin 9.3 g/dl (12.0-16.0); Mean Corpuscular Hemoglobin 29.6 pg (25.0-34.0); Mean Corpuscular Hgb Conc 32.9 g/dL (32.0-36.0); Mean Corpuscular Volume 90.1 fL (80.0-100.0); Mean Platelet Volume 9.9 fL (9.4-12.4); Platelet Count 179 K/uL (130-400); RDW Coefficient of Variation 12.6 % (11.5-14.5); RDW Standard Deviation 40.9 fL (36.4-46.3); Red Blood Count 3.14 M/uL (4.20-5.40); White Blood Count 9.51 K/ul (4.8-10.8)
--- NOTE | 2023-12-13 08:00 | Surgery Progress Note ---
Date of Service December 13, 2023 Assessment & Plan (1) Status post left knee replacement: Plan: 68-year-old female postop day 1 from a left knee replacement. That she is doing well. Pain is controlled. She is neurologically intact. Plan: 1. DVT prophylaxis including thigh-high teds, SCDs, back on Eliquis starting today at a prophylactic dose. 2. PT/OT weight-bear as tolerated left total knee protocol. 3. Pain control doing okay with current pain regimen. 4. Disposition plan to discharge home with some home health if she does okay in therapy today. (2) Paroxysmal atrial fibrillation: Admission and Anticipated Discharge Date Admission Date: December 12, 2023 Subjective 68-year-old female postop day 1 from left knee replacement. She is doing pretty well. Had a good night. Pain is controlled. No chest pain or shortness of breath. Not feeling dizzy or lightheaded. Review of Systems Respiratory: as per Subjective / HPI Physical Exam Physical Exam: Physical exam shows a pleasant middle-age female. She is sitting up in bed looks pretty comfortable this morning. Examination of left leg reveals the dressing be clean dry and intact. No drainage. She can dorsiflex and plantarflex her foot appropriately. She is neurologically intact. Respiratory: normal respiratory effort, lungs clear to auscultation Cardiovascular: RRR, no murmur, no edema Gastrointestinal (Abdomen): normal bowel sounds, soft, nontender, no hepatosplenomegaly Results & Data Vital Signs (Past 12 Hours) Vital Signs Temp Pulse Resp BP Pulse Ox O2 Del Method 12/13/23 07:37 36.7 C 73 18 110/69 99 Room Air 12/13/23 03:16 36.6 C 79 16 97/60 L 96 Room Air 12/12/23 22:20 36.7 C 86 14 123/80 99 Room Air 12/12/23 20:12 36.4 C L 79 18 112/71 97 Room Air Laboratory Results Hemoglobin is 9.3. Hematocrit is 28.3. Electrolytes are pending. PG Care Time/CCT Total # of Minutes Spent Total Time Spent with Patient: Total time spent is greater than 50% in coordination of care (as documented) at patient's floor/unit and/or counseling patient: Coding Level of Care Code 72654 Post Operative Follow-Up Diagnoses Status post left knee replacement Z96.652 Paroxysmal atrial fibrillation I48.0
[2023-12-13] MEDS: MULTIVITAMIN TAB PO SCH (08:05)
[2023-12-13] MEDS: CALCIUM 600MG + VIT D 400 IU TAB PO SCH (08:05)
[2023-12-13] MEDS: OMEGA-3 (PURIFIED FISH OIL) 1 GM CAP PO SCH (08:06)
[2023-12-13 08:08] LABS: BUN Creatinine Ratio 20.3 (10-20); Calcium 8.3 mg/dl (8.6-10.3); Creatinine Clr Calc Pharmacy 67.7 ml/min; Est GFR (African American) 95.1 ml/min; Est GFR (Non-African American) 82.1 ml/min; Potassium 4.2 mmol/L (3.5-5.1)
[2023-12-13] MEDS: dexAMETHasone 10 MG in SYRINGE 0 ML IV SCH (08:08)
[2023-12-13] MEDS ORDERED: NON-FORMULARY MEDICATION (Coenzyme Q10 100 mg capsule) PO SCH (09:00)
[2023-12-13] MEDS ORDERED: APIXABAN 2.5 MG TAB PO SCH (14:00)
--- NOTE | 2023-12-18 07:49 | Discharge Summary ---
Date of Service December 18, 2023 Discharge Data Procedures Performed Operation Date: 12/12/23 11:00 Actual Procedures p Left Total Knee Arthroplasty(Left) - Edison Aguilar MD Hospital Course (1) Status post left knee replacement: This is a 68 year old patient admitted on 12/12/23 and underwent total knee arthroplasty. She tolerated the procedure well and there were no complications. Transferred to the PACU post op and later to the orthopedic floor for further care. She was given ancef for antibiotic prophylaxis. She was also given LUIS F stockings, SCDs, and eliquis for DVT prophylaxis. Hemoglobin, hematocrit, and vital signs were monitored during her hospital stay and remained stable. Did not require any blood transfusions. There were no complications during her hospital stay. By post op day #1 the patient was tolerating a regular diet, pain was reasonably controlled with oral pain medicine, and she was participating in physical therapy. On post op day #1 the patient was discharged home and set up with home health care. She was given printed discharge instructions including prescriptions for extra strength tylenol, cefadroxil, oxycodone, zofran, and senokot. Continue physical therapy, weight bearing as tolerated. Continue LUIS F stockings. Follow up approximately 2 weeks post op or sooner if there are problems or concerns. Coding Level of Care Code None Diagnoses Status post left knee replacement Z96.652
== END 2023-12-13 15:11 | disposition home health service (06) ==
LOC: ASU 09:30 → 3E 09:30